=== PATIENT | female | born 1945 | race Caucasian/White ===

== ENCOUNTER 2017-01-11 17:03 | Inpatient (IN) | payer MEDICARE ==
[~2017-01-11] VITALS: Ht 165.1 cm; Wt 108.9 kg
[2017-01-11 18:58] LABS: HEMOGLOBIN 14.3 gm/dl (12.3-15.3); RED BLOOD COUNT 4.98 M/UL (4.00-5.10); WHITE BLOOD COUNT 18.7 K/UL (4.5-11.0)
[2017-01-12 06:45] LABS: RED BLOOD COUNT 4.9 M/UL (4.00-5.10); WHITE BLOOD COUNT 14.3 K/UL (4.5-11.0)
[2017-01-12] MEDS ORDERED: METOPROLOL TART50 MG PO (20:01)
[2017-01-12] MEDS ORDERED: FLECAINIDE ACET50 MG PO (20:02)
[2017-01-12] MEDS ORDERED: CATAPRES 0.1MG0.1 MG PO (20:03)
[2017-01-12] MEDS ORDERED: SYNTHROID75 MCG PO (20:03)
[2017-01-12] MEDS ORDERED: COZAAR100 MG PO (20:05)
[2017-01-12] MEDS ORDERED: PRAVACHOL40 MG PO (20:06)
[2017-01-13 04:29] LABS: HEMOGLOBIN 12.1 gm/dl (12.3-15.3); WHITE BLOOD COUNT 11.7 K/UL (4.5-11.0)
[2017-01-13 04:32] LABS: RED BLOOD COUNT 4.22 M/UL (4.00-5.10)
[2017-01-14 05:56] LABS: HEMOGLOBIN 12.1 gm/dl (12.3-15.3); RED BLOOD COUNT 4.23 M/UL (4.00-5.10); WHITE BLOOD COUNT 11.3 K/UL (4.5-11.0)
[2017-01-14] MEDS ORDERED: COLACE 100MG C100 MG PO (17:32)
[2017-01-14] MEDS ORDERED: PROTONIX 40 MG40 M1 PO (17:33)
[2017-01-14] MEDS ORDERED: MIRALAX17 GM PO (17:34)
== END 2017-01-14 18:35 | disposition home or self-care (01) | DRG 683 ==
LOC: ER1 17:03 → ZEROF 20:25 → M/S 20:25
PROVIDERS: Internal Medicine; Internal Medicine Gastroenterology; Physician Assistant; ADMIT Internal Medicine
PROC: 0DB78ZX Excision of Stomach, Pylorus, Via Natural or Artificial Opening Endoscopic, Diagnostic (ICD-10-PCS; 2017-01-14)
PROC: 0DB68ZX Excision of Stomach, Via Natural or Artificial Opening Endoscopic, Diagnostic (ICD-10-PCS; principal; 2017-01-14 17:45)
DX: N17.9 Acute kidney failure, unspecified (principal); E87.1 Hypo-osmolality and hyponatremia; K31.1 Adult hypertrophic pyloric stenosis; A08.4 Viral intestinal infection, unspecified; E86.0 Dehydration; E87.6 Hypokalemia; D72.829 Elevated white blood cell count, unspecified; I48.0 Paroxysmal atrial fibrillation; I10 Essential (primary) hypertension; E78.5 Hyperlipidemia, unspecified; E03.9 Hypothyroidism, unspecified; Z87.11 Personal history of peptic ulcer disease; K44.9 Diaphragmatic hernia without obstruction or gangrene; K29.50 Unspecified chronic gastritis without bleeding; R11.2 Nausea with vomiting, unspecified; R10.11 Right upper quadrant pain; K59.09 Other constipation; Z86.73 Personal history of transient ischemic attack (TIA), and cerebral infarction without residual deficits; J45.909 Unspecified asthma, uncomplicated; Z90.49 Acquired absence of other specified parts of digestive tract; Z90.710 Acquired absence of both cervix and uterus; Z98.890 Other specified postprocedural states; Z79.899 Other long term (current) drug therapy; Z79.82 Long term (current) use of aspirin; Z87.891 Personal history of nicotine dependence; K31.84 Gastroparesis
CPT/HCPCS: 36415; 71010; 80048; 80053; 81001; 82550; 82553; 82570; 83690; 83874; 84300; 84443; 84484; 85025; 85027; 93005; 96361; 96374; 96375; 99285; C9113; J2250; J2270; J2405; J2550; J3010; J7030; J7040